=== PATIENT | female | born 1975 | race Caucasian/White ===

== ENCOUNTER 2017-10-31 06:42 | Outpatient (CLI) | payer OTHER | END 2017-10-31 06:43 | disposition home or self-care (01) | LOC: BICULT 06:42 | PROVIDERS: ATTEND Otolaryngology Plastic Surgery within the Head & Neck | DX: E04.8 Other specified nontoxic goiter (principal); E04.1 Nontoxic single thyroid nodule; E04.2 Nontoxic multinodular goiter | CPT/HCPCS: 76536 ==

== ENCOUNTER 2019-01-17 10:24 | Outpatient (CLI) | payer BC ==
--- NOTE | 2019-01-17 11:54 | ULT ---
Thyroid ultrasound: 01/17/2019 COMPARISON: None HISTORY: Thyroid nodules TECHNIQUE: Multiplanar grayscale sonographic imaging of the thyroid gland obtained. FINDINGS: Thyroid isthmus measures 6 mm in AP dimension. Right lobe measures 5.2 x 1.9 x 1.6 cm and left lobe measures 5.3 x 1.9 x 1.6 cm. There are 2 subcent imeter hypoechoic nodules within the right lobe measuring 7 x 4 x 3 mm and 5 x 5 x 3 mm respectively. Within the left lobe of the thyroid gland there is a solid and cystic isoechoic/hypoechoic nodule cristal suring 1.3 x 0.8 x 1.8 cm. Immediately adjacent to this is an additional ill-defined hypoechoic nodule measuring approximately 1.5 x 1.3 x 1.1 cm. IMPRESSION: Bilateral thyroid nodules as detailed above. Nodules within the right lobe are TI-RADS ca tegory 3-mildly suspicious. Given size of these nodules, recommend follow-up ultrasound in 6 months.
== END 2019-01-17 10:25 | disposition home or self-care (01) ==
LOC: BICULT 10:24
PROVIDERS: ATTEND Otolaryngology Plastic Surgery within the Head & Neck
DX: E04.2 Nontoxic multinodular goiter (principal)
CPT/HCPCS: 76536

== ENCOUNTER 2019-02-08 14:42 | Outpatient (CLI) | payer BC ==
--- NOTE | 2019-02-08 15:12 | ULT ---
LEFT BREAST ULTRASOUND: HISTORY: Abnormal mammogram of 01/24/2019. FINDINGS: Sonographic evaluation of the left breast including the 2 and 3 o'clock positions demonstrates no abn ormality. IMPRESSION: BIRADS category 0 - incomplete assessment. Left diagnostic mammogram is recommended. POS: OFF
== END 2019-02-08 14:43 | disposition home or self-care (01) ==
LOC: BICULT 14:42
PROVIDERS: ATTEND Student in an Organized Health Care Education/Training Program
DX: N63.20 Unspecified lump in the left breast, unspecified quadrant (principal)

== ENCOUNTER 2019-02-20 08:10 | Outpatient (CLI) | payer BC ==
--- NOTE | 2019-02-20 09:26 | MMO ---
Left Breast MAMMO Unilat Diag [facility]. CLINICAL HISTORY: Patient is 43 years old and is seen for diagnostic exam. The patient has the following family history of breast cancer: 2 cousin females. The patient has no personal history of cancer. VIEWS: The views performed were: left craniocaudal spot compression with tomosynthesis; left mediolateral oblique spot compression with tomosynthesis; and left mediolateral with tomosynthesis. FILMS COMPARED: The present examination has been compared to prior imaging studies performed at [facility] on 01/24/2019, and at [facility] on 02/08/2019 and 02/20/2019. This study has been interpreted with the assistance of computer-aided detection. MAMMOGRAM FINDINGS: The breast is heterogeneously dense, which could obscure a lesion on mammography. Additional views were performed. No sonographic or mammographic mass identified in the outer aspect of the left breast. There are no suspicious masses, suspicious calcifications, or new areas of architectural distortion. IMPRESSION: THERE IS NO MAMMOGRAPHIC EVIDENCE OF MALIGNANCY. NO SUSPICIOUS MASS SEEN ON MAMMOGRAPHIC AND SONOGRAPHIC EVALUATION OF THE 3:00 POSITION OF THE LEFT BREAST. PATIENT COUNSELLED ON FINDINGS PRIOR TO LEAVING THE BREAST CENTER. NEGATIVE IMAGING SHOULD NEVER DETER BIOPSY IF FINDINGS ON CLINICAL EXAM ARE SUSPICIOUS. A ROUTINE FOLLOW-UP MAMMOGRAM IN 1 YEAR IS RECOMMENDED. THE RESULTS OF THIS EXAM WERE SENT TO THE PATIENT. ACR BI-RADS Category 2 - Benign finding MAMMOGRAPHY NOTE: 1. A negative mammogram report should not delay a biopsy if a dominant of clinically suspicious mass is present. 2. Approximately 10% to 15% of breast cancers are not detected by mammography. 3. Adenosis and dense breasts may obscure an underlying neoplasm. Reported by: JONAS GUPTA MD Electonically Signed: [id number]
--- NOTE | 2019-02-20 11:18 | ULT ---
LEFT BREAST DIAGNOSTIC MAMMOGRAM: INDICATIONS: Repeat left breast mammogram diagnostic ultrasound due to a left breast mass identified on [facility]. The examination was read by a Dr. Jenny grant 01/25/2019. The patient originally had a left breast ultrasound on 02/08/2019 which identified no a bnormalities; however, small hypoechoic lesion was marked on the prior examination in the left breast 2 o'clock position that was not further assessed. This is a repeat left breast ultrasound to further assess this abnormality. The patient should not be charged for this left breast ultrasound. FINDINGS: The small hypoechoic structure identified on the prior left breast ultrasound dated 02/08/2019 is unc hanged in appearance and blends with the normal surrounding breast parenchyma and is likely an accent uated hypoechoic region of normal breast tissue. No focal mass is evident on real-time examination in this location. No suspicious abnormality seen within the left breast 3 o'clock position. IMPRESSION: BI-RADS category 2 - benign. No suspicious sonographic abnormality seen within the left breast 2 o'cl ock or 3 o'clock positions. The patient was counseled on the findings prior to leaving the [facility]. POS: OFF
== END 2019-02-20 08:11 | disposition home or self-care (01) ==
LOC: BICMAMMO 08:10
PROVIDERS: ATTEND Student in an Organized Health Care Education/Training Program
DX: R92.8 Other abnormal and inconclusive findings on diagnostic imaging of breast (principal)
CPT/HCPCS: G0279

== ENCOUNTER 2020-02-12 14:25 | Outpatient (CLI) | payer BC ==
--- NOTE | 2020-02-12 15:27 | ULT ---
Thyroid ultrasound: 02/12/2020 COMPARISON: 01/17/2019 HISTORY: Evaluate thyroid nodule TECHNIQUE: Multiplanar grayscale sonographic imaging of the thyroid gland obtained. FINDINGS: The thyroid isthmus measures approximately 4 mm in AP dimension. The right lobe measures 5.4 x 1.8 x 1.7 cm and the left lobe measures 5.4 x 1.8 x 1.6 cm. 2. Mildly complex cysts are noted within the upper aspect of the right lobe measuring 4 mm respective ly. There is a complex primarily solid nodule with internal cystic change within the inferior lateral aspect of the left lobe measuring approximately 1.2 x 0.9 x 1.9 cm, similar when compared to the prior examination at which time it measured approximately 1.3 x 0.8 x 1.8 cm. Additional scattered small hypoechoic nodules are noted within the left lobe measuring up to 5 mm. IMPRESSION: TI-RADS category 3-mildly suspicious. The dominant nodule is located on the left side, m easures up to approximately 1.9 cm, and is solid and cystic in nature. Continued follow-up is advised. Recommend annual follow-up ultrasound for a total of 5 years.
== END 2020-02-12 14:26 | disposition home or self-care (01) ==
LOC: BICULT 14:25
PROVIDERS: ATTEND Otolaryngology Plastic Surgery within the Head & Neck
DX: E04.1 Nontoxic single thyroid nodule (principal); E04.8 Other specified nontoxic goiter
CPT/HCPCS: 76536

== ENCOUNTER 2020-02-12 14:58 | Outpatient (CLI) | payer BC ==
--- NOTE | 2020-02-12 16:00 | MMO ---
Bilateral MAMMO Bilat Screen [facility]. CLINICAL HISTORY: Patient is 44 years old and is seen for screening. The patient has the following family history of breast cancer: 2 cousin females. The patient has no personal history of cancer. VIEWS: The views performed were: bilateral craniocaudal with tomosynthesis and bilateral mediolateral oblique with tomosynthesis. FILMS COMPARED: The present examination has been compared to prior imaging studies performed at [facility] on 01/24/2019, and at [facility] on 02/08/2019 and 02/20/2019. This study has been interpreted with the assistance of computer-aided detection. MAMMOGRAM FINDINGS: The breasts are heterogeneously dense, which could obscure a lesion on mammography. There are no suspicious masses, suspicious calcifications, or new areas of architectural distortion. IMPRESSION: THERE IS NO MAMMOGRAPHIC EVIDENCE OF MALIGNANCY. A ROUTINE FOLLOW-UP MAMMOGRAM IN 1 YEAR IS RECOMMENDED. THE RESULTS OF THIS EXAM WERE SENT TO THE PATIENT. ACR BI-RADS Category 1 - Negative MAMMOGRAPHY NOTE: 1. A negative mammogram report should not delay a biopsy if a dominant of clinically suspicious mass is present. 2. Approximately 10% to 15% of breast cancers are not detected by mammography. 3. Adenosis and dense breasts may obscure an underlying neoplasm. Reported by: EDUARDO MALONEY MD Electonically Signed: [id number]
== END 2020-02-12 14:59 | disposition home or self-care (01) ==
LOC: BICMAMMO 14:58
PROVIDERS: ATTEND Student in an Organized Health Care Education/Training Program
DX: Z12.31 Encounter for screening mammogram for malignant neoplasm of breast (principal); Z80.3 Family history of malignant neoplasm of breast
CPT/HCPCS: 77063; 77067

== ENCOUNTER 2022-02-24 08:50 | Outpatient (CLI) | payer BC | END 2022-02-24 08:51 | disposition home or self-care (01) | LOC: BICMAMMO 08:50 | PROVIDERS: ATTEND Obstetrics & Gynecology | DX: N63.20 Unspecified lump in the left breast, unspecified quadrant (principal) | CPT/HCPCS: 77066; G0279 ==